=== PATIENT | female | born 1950 | race Two or more races ===

== ENCOUNTER 2017-06-29 13:36 | Emergency (ER) | payer OTHER ==
[2017-06-29 13:52] VITALS: TEMP 98.4
[2017-06-29] MEDS ORDERED: fentaNYL 100 MCG/2 ML INJ IVP ONE ×2 (14:04→14:36)
[2017-06-29] MEDS ORDERED: NS 1,000 ML IV ONE (14:21)
--- NOTE | 2017-06-29 14:28 | EDPHY ---
HPI/HX/ROS/PE/MDM Narrative: CHIEF COMPLAINT: Right wrist injury HPI: The patient is a 67 y/o male arriving with her complaining of right wrist pain secondary to a fall while hiking about 1 hour prior to arrival here. She slipped on a rock and fell, catching herself on her right hand. She had immediate pain in her right wrist, but was able to walk back to her car. She denies striking her head, loss of consciousness, weakness, paresthesias, or other injuries. She denies any pertinent medical history. REVIEW OF SYSTEMS: Aside from elements discussed in the HPI, a comprehensive 10-point review of systems was reviewed and is negative. PMH: Denies SOCIAL HISTORY: at bedside. Visiting from [facility]. PHYSICAL EXAM: General:Patient is alert, in no acute distress. ENT:Eyes are normal to inspection. ENT inspection normal. Neck: Normal inspection. Full range of motion. Respiratory:No respiratory distress. Breath sounds normal bilaterally. Cardiovascular: Regular rate and rhythm. Strong peripheral pulses. Normal cap refill. Abdomen:The abdomen is nontender to palpation. There are no peritoneal signs. Back: Normal to inspection. No tenderness to palpation. Skin: Normal color. No rash. Warm and dry. Extremities: Swelling and tenderness to her right wrist with tenderness over distal radius. Otherwise normal appearance with full range of motion. Neuro: Oriented x3. Right arm: Light touch sensation and motor function is preserved in the axillary, median, radial and ulnar nerve distributions. There is a 2+ radial pulse with brisk cap refill. Normal motor function. Normal sensory function. ED Course: IV established. 0.5mg IV Fentanyl administered for pain. Right wrist and forearm x-rays ordered. She is neurovascularly intact distal to the injury. X-rays reveal displaced distal radius fracture and ulnar styloid fracture. Procedure: Reduction of displaced right distal radius fracture Time-out completed immediately before the procedure. IV established. O2 administered. Placed on pulse oximeter and ETCO2 monitor. Neurovascular exam intact pre-procedure. Given 50mcg IV Fentanyl and 50% lidocaine/50% bupivacaine hematoma block via ultrasound guidance for pain. The right distal radius fracture was reduced using traction and dorsal pressure. Reassessed post- procedure. Neurovascular status intact-Normal Motor and sensory exam. Exam indicated reduction. Splint applied by myself and tech. The procedure was performed by myself, Dr. Gaming. Patient will be discharged with a script for Percocet and standard wrist fracture care instructions. She's been referred to ortho follow up locally, but plans to fly home tomorrow to follow up with an orthopedist in [place]. Return precautions discussed. She and her are comfortable with this plan. - Data Points Imaging Results: Imaging Impressions Forearm X-Ray 06/29/17 14:01 Impression: 1. Comminuted intraarticular fracture of the distal radius with dorsal angulation and impaction. 2. Minimally displaced ulnar solid fracture. Wrist X-Ray 06/29/17 14:01 Impression: 1. Severely comminuted intra-articular fracture of the distal radius with moderate dorsal angulation. 2. Minimally displaced ulnar styloid fracture 3. Additional findings as above. Imaging: I viewed and interpreted images myself Medications Given: Discontinued Medications Fentanyl (Sublimaze) 50 mcg IVP EDNOW ONE Stop: 06/29/17 14:05 Last Admin: 06/29/17 14:11 Dose: 50 mcg Fentanyl (Sublimaze) 50 mcg IVP EDNOW ONE Stop: 06/29/17 14:37 Last Admin: 06/29/17 14:53 Dose: 50 mcg Sodium Chloride (Ns) 1,000 mls @ 0 mls/hr IV EDNOW ONE; Wide Open PRN Reason: Protocol Stop: 06/29/17 14:22 Last Admin: 06/29/17 14:23 Dose: 1,000 mls General Time Seen by Provider: 06/29/17 14:04 Initial Vital Signs: Initial Vital Signs Temperature (C) 36.9 C 06/29/17 13:50 Heart Rate 88 06/29/17 13:50 Respiratory Rate 18 06/29/17 13:50 Blood Pressure 118/68 06/29/17 13:50 O2 Sat (%) 99 06/29/17 13:50 O2 Delivery Mode Room Air Allergies/Adverse Reactions: Sulfa (Sulfonamide Antibiotics) Allergy (Verified 06/29/17 13:53) Home Medications: Medication Instructions Recorded oxyCODONE/APAP 5/325 [Percocet 5 - 10 mg PO Q4-6PRN PRN #14 tab 06/29/17 5/325] oxyCODONE/APAP 5/325 [Percocet 5 - 10 mg PO Q4-6PRN PRN #25 tab 06/29/17 5/325] Departure - Departure Disposition: Home, Routine, Self-Care Clinical Impression: Distal radius fracture, right Qualifiers: Encounter type: initial encounter Fracture type: closed Fracture morphology: other fracture Qualified Code(s): S52.591A - Other fractures of lower end of right radius, initial encounter for closed fracture Fracture of ulnar styloid Qualifiers: Encounter type: initial encounter Fracture type: closed Fracture alignment: displaced Laterality: right Qualified Code(s): S52.611A - Displaced fracture of right ulna styloid process, initial encounter for closed fracture Condition: Good Instructions: Wrist Fracture in Adults (ED) Additional Instructions: 1. Keep splint in place until follow up with orthopedic surgeon. Use sling for comfort. 2. Follow up with orthopedic surgeon in the next week. You've been referred to Dr. Baca locally if needed. 3. Use Percocet as prescribed for pain. This medication will make you drowsy. Do not drive while using it. 4. Return to the ED for severe pain, weakness or numbness in your fingers, or other worsening of condition. Referrals: Daren Baca MD [Medical Doctor] - As per Instructions Prescriptions: oxyCODONE/APAP 5/325 [Percocet 5/325] 5 - 10 mg PO Q4-6PRN PRN #14 tab PRN Reason: For Pain oxyCODONE/APAP 5/325 [Percocet 5/325] 5 - 10 mg PO Q4-6PRN PRN #25 tab PRN Reason: For Pain Report Scribed for: Bishop Gaming Report Scribed by: Lauren Blanc Date of Report: 06/29/17 Time of Report: 14:30 Physician Review and Approval Statement: Portions of this note were transcribed by an ED scribe. I personally performed the history, physical exam, and medical decision making; and confirm the accuracy of the information in the transcribed note.
[2017-06-29 16:16] VITALS: BP 112/72; PULSE 74; RESP 16; O2SAT 95
== END 2017-06-29 16:32 | disposition home or self-care (01) ==
PROC: 0PSKXZZ Reposition Right Ulna, External Approach (ICD-10-PCS; principal; 2017-06-29)
PROC: 0PSHXZZ Reposition Right Radius, External Approach (ICD-10-PCS; principal; 2017-06-29)
DX: S52.591A Other fractures of lower end of right radius, initial encounter for closed fracture (principal); S52.611A Displaced fracture of right ulna styloid process, initial encounter for closed fracture; E86.9 Volume depletion, unspecified; W01.0XXA Fall on same level from slipping, tripping and stumbling without subsequent striking against object, initial encounter; Y92.89 Other specified places as the place of occurrence of the external cause; Y99.8 Other external cause status; Y93.01 Activity, walking, marching and hiking
CPT/HCPCS: J3010